=== PATIENT | female | born 1970 | race Caucasian/White ===

== ENCOUNTER 2016-10-31 02:41 | Emergency (ER) | payer OTHER ==
[~2016-10-31] VITALS: Ht 172.7 cm; Wt 122.4 kg
[~2016-10-31 02:41] MED LIST: FLEXERIL10 MG PO; GUMMIES CHILDR1 EACH PO; NAPROSYN500 MG PO; PREDNISONE10 MG PO
[2016-10-31] MEDS ORDERED: BONINE25 MG PO (05:40)
[2016-10-31 06:06] VITALS: BP 137/58
== END 2016-10-31 05:55 | disposition home or self-care (01) ==
LOC: EME 02:41
DX: H81.10 Benign paroxysmal vertigo, unspecified ear (principal)
CPT/HCPCS: 70450; 99281; 99284; J1100; J1200; J2765